=== PATIENT | male | born 1975 | race American Indian/Alaskan Native ===

== ENCOUNTER 2019-11-28 03:25 | Emergency (ER) | payer SELFPAY ==
--- NOTE | 2019-11-28 10:29 | Emergency Department Report ---
ED Psych HPI - General Chief Complaint: Medical Clearance Stated Complaint: MENTAL EVAL Time Seen by Provider: 11/28/19 09:42 Source: patient Mode of arrival: Ambulatory - History of Present Illness Initial Comments: Patient is a 44-year-old F [place]ien male who is presenting with request for mental health counseling. Patient states he had an argument with the mother of his children and he states he was yelling and shouting and feels bad about it. He denies homicidal suicidal ideations. Patient denies auditory visual hallucinations. Patient states the argument just got out of hand but was never physical. Patient feels like his emotions are getting the better of him and his wanted to get some outpatient support. - Related Data Allergies Allergy/AdvReac Type Severity Reaction Status Date / Time Penicillins Allergy Hives Verified 11/28/19 04:58 ED Review of Systems ROS: Stated complaint: MENTAL EVAL Other details as noted in HPI Comment: All other systems reviewed and negative ED Past Medical Hx - Past Medical History Previous Medical History?: Yes Hx Hypertension: Yes - Surgical History Past Surgical History?: No - Social History Smoking Status: Former Smoker Substance Use Type: None ED Physical Exam - General Limitations: No Limitations General appearance: alert, in no apparent distress - Head Head exam: Present: atraumatic, normocephalic - Eye Eye exam: Present: normal appearance - ENT ENT exam: Present: mucous membranes moist - Neck Neck exam: Present: normal inspection - Respiratory Respiratory exam: Present: normal lung sounds bilaterally. Absent: respiratory distress, wheezes, rales, rhonchi - Cardiovascular Cardiovascular Exam: Present: regular rate, normal rhythm, normal heart sounds. Absent: systolic murmur, diastolic murmur, rubs, gallop - GI/Abdominal GI/Abdominal exam: Present: soft, normal bowel sounds. Absent: distended, tenderness, guarding, rebound - Rectal Rectal exam: Present: deferred - Extremities Exam Extremities exam: Present: normal inspection - Back Exam Back exam: Present: normal inspection - Neurological Exam Neurological exam: Present: alert, oriented X3 - Psychiatric Psychiatric exam: Present: normal affect, normal mood - Skin Skin exam: Present: warm, dry, intact, normal color. Absent: rash ED Course Vital Signs 11/28/19 04:31 Temperature 98.3 F Pulse Rate 60 Respiratory 18 Rate Blood Pressure 129/78 O2 Sat by Pulse 97 Oximetry ED Medical Decision Making - Medical Decision Making Patient is calm and cooperative at this time. He was given a list of outpatient resources for to [facility]. Patient will be discharged. Critical care attestation.: If time is entered above; I have spent that time in minutes in the direct care of this critically ill patient, excluding procedure time. ED Disposition Clinical Impression: Anger reaction Disposition: Z- MED SCREENING EXAM-LEFT Is pt being admited?: No Does the pt Need Aspirin: No Condition: Stable Referrals: PRIMARY CARE, [Primary Care Provider] - 3-5 Days Time of Disposition: 10:28
[2019-11-28 10:43] VITALS: BP 131/60
== END 2019-11-28 10:45 | disposition left against medical advice (07) ==
LOC: ED 03:25
DX: R45.4 Irritability and anger (principal); Z53.21 Procedure and treatment not carried out due to patient leaving prior to being seen by health care provider

== ENCOUNTER 2020-02-17 18:12 | Emergency (ER) | payer SELFPAY ==
[2020-02-17 18:26] VITALS: BP 135/77
[2020-02-17] MEDS ORDERED: DIPHtheria,PERTUSSIS(ACELL),TETANUS VACCINE/PF 0.5 ML VIAL IM ONE (19:54)
--- NOTE | 2020-02-17 20:03 | Emergency Department Report ---
ED General Adult HPI - General Chief complaint: Wound/Laceration Stated complaint: THUMB LACERATION, SORE THROAT Time Seen by Provider: 02/17/20 19:54 Source: patient Mode of arrival: Ambulatory Limitations: No Limitations - History of Present Illness Initial comments: Patient is a 44-year-old male who presents emergency room complaints of a laceration to the right thumb that occurred 4 days ago. 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 He states initially there was bleeding but has since completely resolved. It has healed and scabbed over. He states he just wanted to have it evaluated. He states he is unsure of his tetanus immunization. No fever, vomiting, chills, diarrhea, drainage. Patient is also presenting for a mild sore throat that began 2 days ago. He states occasionally he has discomfort with swallowing. He denies any fever. He is tolerating p.o. intake and sec retions on difficulty. He denies any known sick contacts or recent travel. No past medical history. Allergy to penicillin. - Related Data Allergies Allergy/AdvReac Type Severity Reaction Status Date / Time Penicillins Allergy Hives Verified 02/17/20 18:24 ED Review of Systems ROS: Stated complaint: THUMB LACERATION, SORE THROAT Other details as noted in HPI Comment: All other systems reviewed and negative ED Past Medical Hx - Past Medical History Hx Hypertension: Yes - Surgical History Additional Surgical History: HAND - Social History Smoking Status: Former Smoker Substance Use Type: None ED Physical Exam - General Limitations: No Limitations General appearance: alert, in no apparent distress - Head Head exam: Present: atraumatic, normocephalic - Eye Eye exam: Present: normal appearance - ENT ENT exam: Present: normal orophraynx, mucous membranes moist, TM's normal bilaterally, normal external ear exam, other (Normal oropharynx, no hypertrophy or exudates, uvula is midline, no uvular edema or deviation) - Respiratory Respiratory exam: Present: normal lung sounds bilaterally. Absent: respiratory distress, wheezes, rales, rhonchi, stridor, chest wall tenderness, accessory muscle use, decreased breath sounds, prolonged expiratory - Cardiovascular Cardiovascular Exam: Present: regular rate, normal rhythm, normal heart sounds. Absent: systolic murmur, diastolic murmur, rubs, gallop - Neurological Exam Neurological exam: Present: alert, oriented X3 - Psychiatric Psychiatric exam: Present: normal affect, normal mood - Skin Skin exam: Present: warm, dry, other (well healing laceration to the right dorsal thumb with scabbing present, there is no edema, no erythema, no induration, no fluctuance, no drainage, no necrosis, FROM of the right thumb, neurovascularly intact) ED Course Vital Signs 02/17/20 18:25 Temperature 98.2 F Pulse Rate 77 Respiratory 16 Rate Blood Pressure 135/77 O2 Sat by Pulse 95 Oximetry ED Medical Decision Making - Medical Decision Making Patient is a 44-year-old male who presents emergency room complaints of a laceration to the right thumb that occurred 4 days ago. 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 He states initially there was bleeding but has since completely resolved. It has healed and scabbed over. He states he just wanted to have it evaluated. He states he is unsure of his tetanus immunization. No fever, vomiting, chills, diarrhea, drainage. Patient is also presenting for a mild sore throat that began 2 days ago. He states occasionally he has discomfort with swallowing. He denies any fever. He is tolerating p.o. intake and secretions on difficulty. He denies any known sick contacts or recent travel. No past medical history. Allergy to penicillin. VSS. on exam: well healing laceration to the right dorsal thumb with scabbing present, there is no edema, no erythema, no induration, no fluctuance, no drainage, no necrosis, FROM of the right thumb, neurovascularly intact, Normal oropharynx, no hypertrophy or exudates, uvula is midline, no uvular edema or deviation. Patient's laceration appears to be healing and there is no signs of infection. Patient's oropharynx is normal in appearance, no signs of pharyngitis or tonsillitis. Patient given Tdap while in the emergency department. advised pt May take Tylenol or ibuprofen as needed for discomfort. Gargle with warm salt water 3-5 times a day. May use [id number] throat spray or use throat lozenges. Please keep area on your thumb clean, dry. May wash with antibacterial soap and water pat dry. May use Neosporin or triple antibiotic ointment. Follow-up with your primary care doctor. Return to emergency room for new or worsening symptoms. Critical care attestation.: If time is entered above; I have spent that time in minutes in the direct care of this critically ill patient, excluding procedure time. ED Disposition Clinical Impression: Sore throat Thumb laceration Qualifiers: Encounter type: initial encounter Damage to nail status: without damage Foreign body presence: without foreign body Laterality: right Qualified Code(s): S61.011A - Laceration without foreign body of right thumb without damage to nail, initial encounter Disposition: TO HOME OR SELFCARE Is pt being admited?: No Does the pt Need Aspirin: No Condition: Stable Instructions: Laceration Care, Adult, Sore Throat, [id number], VIS, Tetanus, Diphtheria, and Pertussis (Tdap) - CDC (05/27/2019) Additional Instructions: May take Tylenol or ibuprofen as needed for discomfort. Gargle with warm salt water 3-5 times a day. May use [id number] throat spray or use throat lozenges. Please keep area on your thumb clean, dry. May wash with antibacterial soap and water pat dry. May use Neosporin or triple antibiotic ointment. Follow-up with your primary care doctor. Return to emergency room for new or worsening symptoms. Referrals: PRIMARY MD FARRAH [Primary Care Provider] - 3-5 Days IOANA CRUM MD [Staff Physician] - 3-5 Days [facility] [Provider Group] - 3-5 Days Time of Disposition: 20:01 Print Language: NIGERIAN
== END 2020-02-17 20:26 | disposition home or self-care (01) ==
LOC: ED 18:12
DX: S61.011A Laceration without foreign body of right thumb without damage to nail, initial encounter (principal); J02.9 Acute pharyngitis, unspecified; I10 Essential (primary) hypertension; Z87.891 Personal history of nicotine dependence; W45.8XXA Other foreign body or object entering through skin, initial encounter; Y93.89 Activity, other specified; Y92.89 Other specified places as the place of occurrence of the external cause; Y99.8 Other external cause status
CPT/HCPCS: 90471; 90715; 99282